=== PATIENT | male | born 1970 | race Caucasian/White ===

== ENCOUNTER 2019-06-18 14:36 | Emergency (ER) | payer OTHER ==
[~2019-06-18] VITALS: Ht 165.1 cm; Wt 59.0 kg
[~2019-06-18 14:36] MED LIST: COLACE100 MG PO; DAYPRO600 M1 PO; FLEXERIL5 MG PO; MEDROL DOSEPAK4 MG PO; MOTRIN800 MG PO; PERCOCET 325 MG1 TAB PO; ROBAXIN750 MG PO; VICODIN 500 MG-1 TAB PO
[2019-06-18 15:10] LABS: BASO # 0.1 10*3/uL (0.0-0.1); BASO % 1.1 % (0.0-1.0); EOS # 0.3 10*3/uL (0.0-0.4); EOS % 2.5 % (1.0-4.0); HEMATOCRIT 47.9 % (42.0-52.0); HEMOGLOBIN 16.1 g/dl (14.0-18.0); LYMPH # 3.8 10*3/uL (1.3-4.4); LYMPH % 34.9 % (27.0-41.0); MEAN CELL VOLUME 86.9 fl (80.0-94.0); MEAN CORPUSCULAR HGB 29.2 pg (27.0-31.0); MEAN CORPUSCULAR HGB CONC 33.6 g/dl (33.0-37.0); MEAN PLATELET VOLUME 10.9 fl (9.6-12.3); NEUT # 5.7 10*3/uL (2.3-7.9); PLATELET COUNT AUTOMATED 296 10*3/uL (130-400); RED BLOOD COUNT 5.51 10*6/uL (4.50-5.90); RED CELL DISTRI WIDTH 13.2 % (0-14.5); WHITE BLOOD COUNT 10.9 10*3/uL (4.8-10.8)
[2019-06-18 15:24] LABS: ALBUMIN 4.1 gm/dl (3.1-4.5); ALKALINE PHOSPHATASE 75 U/L (45-117); BUN 9 mg/dl (7-24); CHLORIDE 106 mmol/L (98-107); CREATININE 1.23 mg/dL (0.70-1.30); LIPASE 83 U/L (73-393); POTASSIUM 4.4 mmol/L (3.5-5.1); SGOT/AST 11 IU/L (3-35); SGPT/ALT 21 U/L (12-78); SODIUM 134 mmol/L (136-145); TOTAL PROTEIN 8.1 gm/dL (6.4-8.2)
[2019-06-18 16:54] LABS: BILIRUBIN NEGATIVE (NEGATIVE); BLOOD NEGATIVE (NEGATIVE); CLARITY CLEAR (CLEAR); COLOR YELLOW (YELLOW); GLUCOSE NEGATIVE (NEGATIVE); KETONE NEGATIVE (NEGATIVE); SPECIFIC GRAVITY 1.005 (1.005-1.030)
[2019-06-18 16:55] LABS: LEUKO ESTERASE NEGATIVE (NEGATIVE); NITRITE NEGATIVE (NEGATIVE); UROBILINOGEN 0.2 E.U./dl (0.2-1.0)
[2019-06-18] MEDS ORDERED: AUGMENTIN 875875 MG PO (17:33)
[2019-06-18] MEDS ORDERED: DICYCLOMINE HYD20 MG PO (17:33)
== END 2019-06-18 17:54 | disposition home or self-care (01) ==
LOC: ED 14:36
PROVIDERS: Physician Assistant
DX: K52.9 Noninfective gastroenteritis and colitis, unspecified (principal); R91.1 Solitary pulmonary nodule; Z79.899 Other long term (current) drug therapy

== ENCOUNTER 2020-02-03 08:09 | Emergency (ER) | payer OTHER ==
[~2020-02-03] VITALS: Ht 162.5 cm; Wt 59.0 kg
[~2020-02-03 08:09] MED LIST changes: +AUGMENTIN 875875 MG PO; +DICYCLOMINE HYD20 MG PO
[2020-02-03] MEDS ORDERED: Motrin,Rufen800 MG PO (10:24)
== END 2020-02-03 10:28 | disposition home or self-care (01) ==
LOC: ED 08:09
DX: S29.012A Strain of muscle and tendon of back wall of thorax, initial encounter (principal); Z79.899 Other long term (current) drug therapy; X58.XXXA Exposure to other specified factors, initial encounter; Y93.89 Activity, other specified; Y92.89 Other specified places as the place of occurrence of the external cause; Y99.8 Other external cause status

== ENCOUNTER 2020-06-15 20:28 | Emergency (ER) | payer OTHER ==
[~2020-06-15] VITALS: Ht 165.1 cm; Wt 61.2 kg
[~2020-06-15 20:28] MED LIST changes: +Motrin,Rufen800 MG PO
[2020-06-15 21:03] LABS: BASO # 0.1 10*3/uL (0.0-0.1); BASO % 0.8 % (0.0-1.0); EOS # 0.2 10*3/uL (0.0-0.4); EOS % 1.5 % (1.0-4.0); HEMATOCRIT 45.8 % (42.0-52.0); LYMPH # 4.2 10*3/uL (1.3-4.4); LYMPH % 39.4 % (27.0-41.0); MEAN CELL VOLUME 88.1 fl (80.0-94.0); MEAN CORPUSCULAR HGB 29.6 pg (27.0-31.0); MEAN CORPUSCULAR HGB CONC 33.6 g/dl (33.0-37.0); MEAN PLATELET VOLUME 10.2 fl (9.6-12.3); MONO # 0.9 10*3/uL (0.1-1.0); MONO % 8.2 % (3.0-9.0); NEUT # 5.3 10*3/uL (2.3-7.9); NEUT % 49.8 % (47.0-73.0); PLATELET COUNT AUTOMATED 314 10*3/uL (130-400); RED CELL DISTRI WIDTH 13.3 % (0-14.5); WHITE BLOOD COUNT 10.6 10*3/uL (4.8-10.8)
[2020-06-15 21:20] LABS: ALBUMIN 4.2 gm/dl (3.1-4.5); BUN 6 mg/dl (7-24); CHLORIDE 106 mmol/L (98-107); CREATININE 1.26 mg/dL (0.70-1.30); POTASSIUM 3.9 mmol/L (3.5-5.1); SGOT/AST 9 IU/L (3-35); SGPT/ALT 16 U/L (12-78); SODIUM 137 mmol/L (136-145); TOTAL PROTEIN 8.2 gm/dL (6.4-8.2)
[2020-06-15 21:22] LABS: ALKALINE PHOSPHATASE 71 U/L (45-117)
[2020-06-15 21:25] LABS: TROPONIN I < 0.015 ng/ml (<0.045)
== END 2020-06-15 21:40 | disposition home or self-care (01) ==
LOC: ED 20:28
PROVIDERS: Internal Medicine
DX: R07.89 Other chest pain (principal); Z79.899 Other long term (current) drug therapy; Z98.890 Other specified postprocedural states

== ENCOUNTER → 2020-11-05 | Outpatient (CLI) | payer OTHER | END | disposition home or self-care (01) | LOC: CT 12:47 | PROVIDERS: ATTEND Internal Medicine | DX: R91.1 Solitary pulmonary nodule (principal) ==